=== PATIENT | female | born 1965 | race Caucasian/White ===

== ENCOUNTER → 2016-05-20 | Outpatient (CLI) | payer OTHER | LOC: RAD 08:00 | DX: R13.10 Dysphagia, unspecified (principal); K44.9 Diaphragmatic hernia without obstruction or gangrene; K21.9 Gastro-esophageal reflux disease without esophagitis | CPT/HCPCS: 74220 ==

== ENCOUNTER → 2016-06-05 | Outpatient (CLI) | payer OTHER | LOC: RAD 09:13 | DX: K44.9 Diaphragmatic hernia without obstruction or gangrene (principal) | CPT/HCPCS: 74246 ==

== ENCOUNTER → 2016-07-09 | Outpatient (CLI) | payer OTHER | LOC: EXRD 10:40 | DX: M25.511 Pain in right shoulder (principal) | CPT/HCPCS: 73030 ==

== ENCOUNTER → 2020-03-15 | Outpatient (CLI) | payer OTHER ==
[~2020-03-15] MED LIST: LINZESS145 MCG PO; MACROBID 100 M100 MG PO; MIRALAX 119 GR119 GM PO; NORCO 5-325 TA1 EACH PO; PYRIDIUM200 MG PO
[2020-03-16 12:13] LABS: RHEUMATOID ARTHRITIS FACTOR <10.0 IU/mL (0.0-13.9)
[2020-03-17 00:09] LABS: CCP ANTIBODIES IGG/IGA 3 units (0-19)
== END ==
LOC: MAMO 08:50
PROVIDERS: Internal Medicine
DX: M06.30 Rheumatoid nodule, unspecified site (principal)
CPT/HCPCS: 36415; 83520; 86200; 86431

== ENCOUNTER → 2020-05-01 | Outpatient (CLI) | payer OTHER | LOC: HEART 5 02-23 10:00 | DX: R07.9 Chest pain, unspecified (principal); I08.3 Combined rheumatic disorders of mitral, aortic and tricuspid valves | CPT/HCPCS: 93306 ==

== ENCOUNTER → 2020-05-03 | Outpatient (CLI) | payer OTHER | LOC: MAMO 14:07 | DX: Z12.31 Encounter for screening mammogram for malignant neoplasm of breast (principal); Z80.3 Family history of malignant neoplasm of breast | CPT/HCPCS: 77063; 77067 ==

== ENCOUNTER → 2020-05-12 | Outpatient (CLI) | payer OTHER ==
[2020-05-12 11:31] LABS: HEMOGLOBIN 13.2 gm/dl (12.3-15.3); RED BLOOD COUNT 4.35 M/UL (4.00-5.10); WHITE BLOOD COUNT 8.1 K/UL (4.5-11.0)
[2020-05-12 12:02] LABS: BUN/CREATININE RATIO 20 (0-10)
== END ==
LOC: LAB 10:15
PROVIDERS: Internal Medicine
DX: Z51.81 Encounter for therapeutic drug level monitoring (principal); M05.79 Rheumatoid arthritis with rheumatoid factor of multiple sites without organ or systems involvement; Z79.1 Long term (current) use of non-steroidal anti-inflammatories (NSAID)
CPT/HCPCS: 36415; 73565; 80053; 85025

== ENCOUNTER 2020-10-10 12:17 | Emergency (ER) | payer OTHER ==
[2020-10-10 12:45] LABS: RED BLOOD COUNT 4.33 M/UL (4.00-5.10); WHITE BLOOD COUNT 3.8 K/UL (4.5-11.0)
[2020-10-10 13:35] LABS: BUN/CREATININE RATIO 13 (0-10)
== END 2020-10-10 17:12 | disposition home or self-care (01) ==
LOC: ER1 12:17
PROVIDERS: Emergency Medicine
DX: G43.909 Migraine, unspecified, not intractable, without status migrainosus (principal); I25.10 Atherosclerotic heart disease of native coronary artery without angina pectoris; Z20.822 Contact with and (suspected) exposure to COVID-19
CPT/HCPCS: 70450; 72125; 80053; 81001; 82550; 82553; 83605; 83690; 84484; 85025; 93005; 96374; 96375; 99284; J0780; J1885; J2060; Q9967; U0002

== ENCOUNTER 2021-05-02 11:48 | Emergency (ER) | payer OTHER ==
[2021-05-02 13:31] LABS: HEMOGLOBIN 12.4 gm/dl (12.3-15.3); RED BLOOD COUNT 4.35 M/UL (4.00-5.10); WHITE BLOOD COUNT 4.5 K/UL (4.5-11.0)
[2021-05-02 13:34] LABS: BUN/CREATININE RATIO 11 (0-10)
== END 2021-05-02 17:50 | disposition home or self-care (01) ==
LOC: ER1 11:48
PROVIDERS: Nurse Practitioner
DX: R07.89 Other chest pain (principal); R51.9 Headache, unspecified; Z90.710 Acquired absence of both cervix and uterus; Z88.8 Allergy status to other drugs, medicaments and biological substances; Z88.0 Allergy status to penicillin; Z88.5 Allergy status to narcotic agent
CPT/HCPCS: 0240U; 71045; 80053; 82550; 82553; 84484; 85025; 85379; 86140; 93005; 99285

== ENCOUNTER → 2021-05-31 | Outpatient (CLI) | payer OTHER | LOC: HEART 5 08:48 | DX: R06.2 Wheezing (principal) | CPT/HCPCS: 94010 ==

== ENCOUNTER → 2021-07-31 | Outpatient (CLI) | payer OTHER | LOC: HEART 5 10:09 | DX: R05.3 Chronic cough (principal); U09.9 Post COVID-19 condition, unspecified; R06.02 Shortness of breath | CPT/HCPCS: 95012 ==

== ENCOUNTER → 2021-08-09 | Outpatient (CLI) | payer OTHER | LOC: HEART 5 07-23 13:30 | DX: R07.9 Chest pain, unspecified (principal); R06.02 Shortness of breath; R53.83 Other fatigue; I08.3 Combined rheumatic disorders of mitral, aortic and tricuspid valves | CPT/HCPCS: 93306 ==

== ENCOUNTER → 2021-08-17 | Outpatient (CLI) | payer OTHER | LOC: RAD 09:26 | DX: M54.6 Pain in thoracic spine (principal); M54.50 Low back pain, unspecified; M47.814 Spondylosis without myelopathy or radiculopathy, thoracic region; M47.816 Spondylosis without myelopathy or radiculopathy, lumbar region; M48.061 Spinal stenosis, lumbar region without neurogenic claudication | CPT/HCPCS: 72072; 72100 ==

== ENCOUNTER 2021-11-16 11:10 | Emergency (ER) | payer OTHER ==
[2021-11-16 12:21] LABS: HEMOGLOBIN 14.4 gm/dl (12.3-15.3); RED BLOOD COUNT 4.63 M/UL (4.00-5.10); WHITE BLOOD COUNT 6.1 K/UL (4.5-11.0)
[2021-11-16 12:45] LABS: BUN/CREATININE RATIO 14 (0-10)
[2021-11-16] MEDS ORDERED: PYRIDIUM200 MG PO (14:19)
[2021-11-16] MEDS ORDERED: MACROBID 100 M100 MG PO (14:19)
[2021-11-16] MEDS ORDERED: TORADOL 10 MG T10 MG PO (14:19)
== END 2021-11-16 14:30 | disposition home or self-care (01) ==
LOC: ER1 11:10
PROVIDERS: Physician Assistant Medical
DX: N39.0 Urinary tract infection, site not specified (principal); E78.5 Hyperlipidemia, unspecified; J45.909 Unspecified asthma, uncomplicated; Z87.442 Personal history of urinary calculi; Z90.710 Acquired absence of both cervix and uterus; Z88.5 Allergy status to narcotic agent; Z88.8 Allergy status to other drugs, medicaments and biological substances
CPT/HCPCS: 80053; 81001; 85025; 87077; 87086; 87186; 96374; 96375; 99284; J1170; J1885; J2405